=== PATIENT | female | born 1995 | race Caucasian/White ===

== ENCOUNTER 2022-04-09 01:49 | Emergency (ER) | payer MEDICAID ==
[~2022-04-09] VITALS: Ht 170.2 cm; Wt 74.6 kg
[2022-04-09] MEDS ORDERED: CLEOCIN HCL300 MG PO (02:51)
== END 2022-04-09 03:07 | disposition home or self-care (01) ==
LOC: ED 01:49
DX: K04.7 Periapical abscess without sinus (principal)